=== PATIENT | female | born 1965 | race Caucasian/White ===

== ENCOUNTER 2017-10-27 12:50 | Day surgery (SDC) | payer BC ==
[2017-10-27] MEDS ORDERED: LIDOCAINE 2% (SDV) 5 ML INJ (14:58)
[2017-10-27] MEDS ORDERED: PROPOFOL 60 ML (14:58)
== END 2017-10-27 17:15 | disposition home or self-care (01) ==
LOC: GIL 12:50
DX: Z12.11 Encounter for screening for malignant neoplasm of colon (principal); K29.30 Chronic superficial gastritis without bleeding; D12.2 Benign neoplasm of ascending colon; K20.9 Esophagitis, unspecified; I10 Essential (primary) hypertension; E78.5 Hyperlipidemia, unspecified; E66.01 Morbid (severe) obesity due to excess calories; Z68.39 Body mass index [BMI] 39.0-39.9, adult
CPT/HCPCS: 43239; 88305; 88312; 88313